=== PATIENT | male | born 1995 | race Caucasian/White ===

== ENCOUNTER 2019-05-30 17:02 | Emergency (ER) | payer OTHER ==
[~2019-05-30] VITALS: Ht 172.7 cm; Wt 68.5 kg
[2019-05-30 17:48] VITALS: BP 111/81; Ht 172.7 cm; Wt 68.5 kg
== END 2019-05-30 19:52 | disposition home or self-care (01) ==
LOC: ED 17:02
DX: J06.9 Acute upper respiratory infection, unspecified (principal)

== ENCOUNTER 2019-07-18 01:51 | Emergency (ER) | payer OTHER ==
[~2019-07-18] VITALS: Ht 172.7 cm; Wt 70.3 kg
[2019-07-18 04:00] VITALS: BP 114/75
== END 2019-07-18 04:00 | disposition home or self-care (01) ==
LOC: ED 01:51
DX: J06.9 Acute upper respiratory infection, unspecified (principal); J98.01 Acute bronchospasm; K21.9 Gastro-esophageal reflux disease without esophagitis
CPT/HCPCS: Q0092

== ENCOUNTER 2019-10-16 05:16 | Emergency (ER) | payer OTHER ==
[~2019-10-16] VITALS: Ht 172.7 cm; Wt 68.9 kg
[2019-10-16 05:21] VITALS: Ht 172.7 cm; Wt 68.9 kg
[2019-10-16 05:48] VITALS: BP 118/73
== END 2019-10-16 05:48 | disposition home or self-care (01) ==
LOC: ED 05:16
DX: J02.9 Acute pharyngitis, unspecified (principal); T78.1XXA Other adverse food reactions, not elsewhere classified, initial encounter; K21.9 Gastro-esophageal reflux disease without esophagitis; X58.XXXA Exposure to other specified factors, initial encounter
CPT/HCPCS: J7512; Q0163

== ENCOUNTER 2019-11-05 17:12 | Emergency (ER) | payer OTHER, SELFPAY ==
[~2019-11-05] VITALS: Ht 170.2 cm; Wt 65.8 kg
[2019-11-05 18:03] VITALS: BP 97/65; Ht 170.2 cm; Wt 65.8 kg
== END 2019-11-05 19:03 | disposition home or self-care (01) ==
LOC: ED 17:12
DX: J30.2 Other seasonal allergic rhinitis (principal); F17.210 Nicotine dependence, cigarettes, uncomplicated; K21.9 Gastro-esophageal reflux disease without esophagitis; Z20.828 Contact with and (suspected) exposure to other viral communicable diseases
CPT/HCPCS: U0003-CS

== ENCOUNTER 2019-11-14 12:16 | Emergency (ER) | payer OTHER ==
[~2019-11-14] VITALS: Ht 172.7 cm; Wt 70.3 kg
[2019-11-14 12:54] VITALS: BP 103/64; Ht 172.7 cm; Wt 70.3 kg
== END 2019-11-14 16:14 | disposition left against medical advice (07) ==
LOC: ED 12:16
DX: Z53.21 Procedure and treatment not carried out due to patient leaving prior to being seen by health care provider (principal)
CPT/HCPCS: 82962

== ENCOUNTER 2020-03-01 23:30 | Emergency (ER) | payer OTHER ==
[~2020-03-01] VITALS: Ht 172.7 cm; Wt 73.0 kg
[2020-03-01 23:41] VITALS: Ht 172.7 cm; Wt 73.0 kg
[2020-03-02 01:13] VITALS: BP 145/87
== END 2020-03-02 01:13 | disposition home or self-care (01) ==
LOC: ED 23:30
DX: K01.1 Impacted teeth (principal); K21.9 Gastro-esophageal reflux disease without esophagitis
CPT/HCPCS: J1885